=== PATIENT | male | born 1950 | race Caucasian/White ===

== ENCOUNTER 2018-12-30 11:45 | Day surgery (SDC) | payer MEDICARE, BC ==
[2018-12-28 11:17] VITALS: BMI 31.0
[~2018-12-30 11:45] MED LIST: LACTATED RINGERS 1,000 ML IV SCH; LIDOCAINE 1% 20 ML VIAL (10MG/ML) FOR IV START INTRADERMA PRN
[2018-12-30 12:23] VITALS: TEMP 98.3
[2018-12-30] MEDS ORDERED: PROPOFOL 10 MG/ML 20 ML VIAL IV ONE (12:35)
[2018-12-30] MEDS ORDERED: IV FLUID CONTINUATION 625 ML IV ONE (13:06)
--- NOTE | 2018-12-30 13:22 | P.PCN ---
Date of Procedure: 12/30/18 Procedure(s) Performed: BRIEF HISTORY: Patient is a 68-year-old pleasant white male, scheduled for an elective colonoscopy as a part of evaluation of prior history of colon polyps.. His last colonoscopy was 5 years ago. PROCEDURE PERFORMED: Colonoscopy with biopsy. PREOPERATIVE DIAGNOSIS: History of colon polyps. IV sedation per Anesthesia. PROCEDURE: After informed consent was obtained, the patient, was brought into the endoscopy unit. IV sedation was administered by Anesthesia under continuous monitoring. Digital rectal examination was normal. Initially the Olympus CF- 160 flexible video colonoscope was then inserted in the rectum, gradually advanced into the cecum without any difficulty. Careful examination was performed as the scope was gradually being withdrawn. Ileocecal valve and the appendiceal orifice were visualized and appeared normal. Prep was excellent. Mucosa of the cecum, ascending colon, transverse colon, P normal. The descending colon there was a 5 mm polyp that was removed by cold biopsy. There are scattered sigmoid diverticulosis seen. Rest of the descending colon, sigmoid colon, and rectum appeared normal. Retroflexion was performed in the rectum and no lesions were seen. The patient tolerated the procedure well. IMPRESSION: 5 mm descending colon polyp status by cold biopsy Scattered sigmoid diverticulosis RECOMMENDATIONS: Findings of this examination were discussed with the patient as well as his family. He was advised to follow with the biopsy results and he can have a repeat surveillance colonoscopy in 5 years.
[2018-12-30 13:26] VITALS: RESP 18
[2018-12-30 13:49] VITALS: BP 140/70; PULSE 66
== END 2018-12-30 14:14 | disposition home or self-care (01) ==
LOC: ORWHC2ENDO 11:45
PROVIDERS: ATTEND Internal Medicine Gastroenterology
DX: Z12.11 Encounter for screening for malignant neoplasm of colon (principal); Z86.010 Personal history of colon polyps; D12.4 Benign neoplasm of descending colon; K57.30 Diverticulosis of large intestine without perforation or abscess without bleeding; K21.9 Gastro-esophageal reflux disease without esophagitis; Z87.891 Personal history of nicotine dependence; Z85.46 Personal history of malignant neoplasm of prostate; Z79.899 Other long term (current) drug therapy
CPT/HCPCS: 88305; 45380; J2704

== ENCOUNTER → 2019-07-11 | Outpatient (CLI) | payer MEDICARE, BC ==
[2019-07-11 15:24] LABS: Basophils # (A) 0.1 k/uL (0-0.2); Basophils % (A) 1 %; Eosinophils # (A) 0.1 k/uL (0-0.7); Eosinophils % (A) 1 %; HCT 49.9 % (39.0-53.0); HGB 16.7 gm/dL (13.0-17.5); Lymphocytes # (A) 2.1 k/uL (1.0-4.8); Lymphocytes % (A) 27 %; MCH 32.7 pg (25.0-35.0); MCHC 33.5 g/dL (31.0-37.0); MCV 97.5 fL (80.0-100.0); Mean Platelet Volume 7.9; Monocytes # (A) 0.6 k/uL (0-1.0); Monocytes % (A) 8 %; Neutrophils # (A) 4.8 k/uL (1.3-7.7); Neutrophils % (A) 61 %; Platelet Count 187 k/uL (150-450); RBC 5.12 m/uL (4.30-5.90); RDW 13.5 % (11.5-15.5); WBC 7.8 k/uL (3.8-10.6)
[2019-07-12 01:24] LABS: African American GFR (CKD) 89.2 (60.0-200.0); Albumin 4.5 g/dL (3.80-4.90); Albumin/Globulin Ratio 2.37 (1.60-3.17); Anion Gap 13.3 mmol/L (4.00-12.00); Calcium 9.2 mg/dL (8.7-10.3); Carbon Dioxide 23.7 mmol/L (21.6-31.8); Chol/HDL Ratio 3.1; Globulin 1.9 g/dL (1.6-3.3); LDL Cholesterol,Calculated 130.2 mg/dL (0.0-131.0); Potassium 4.5 mmol/L (3.5-5.5); Total Bilirubin 0.6 mg/dL (0.2-1.2); Total Protein 6.4 g/dL (6.2-8.2); VLDL Calculation 18.8 mg/dL (5.00-40.00)
[2019-07-12 01:42] LABS: T4, Free (Free Thyroxine) 0.9 ng/dL (0.80-1.80)
== END | disposition home or self-care (01) ==
LOC: LABWHC1 13:28
PROVIDERS: ATTEND Internal Medicine
DX: Z00.00 Encounter for general adult medical examination without abnormal findings (principal); C61 Malignant neoplasm of prostate
CPT/HCPCS: 36415; 80053; 80061; 84153; 84439; 84443; 85025

== ENCOUNTER → 2020-07-23 | Outpatient (CLI) | payer MEDICARE, BC ==
[2020-07-23 14:53] LABS: Basophils % (A) 1 %; Eosinophils # (A) 0.3 k/uL (0-0.7); Eosinophils % (A) 3 %; HCT 50.6 % (39.0-53.0); HGB 16.5 gm/dL (13.0-17.5); Lymphocytes # (A) 2.5 k/uL (1.0-4.8); Lymphocytes % (A) 28 %; MCH 31.8 pg (25.0-35.0); MCHC 32.5 g/dL (31.0-37.0); MCV 97.8 fL (80.0-100.0); Mean Platelet Volume 7.9; Monocytes # (A) 0.6 k/uL (0-1.0); Monocytes % (A) 6 %; Neutrophils # (A) 5.4 k/uL (1.3-7.7); Neutrophils % (A) 61 %; Platelet Count 195 k/uL (150-450); RBC 5.18 m/uL (4.30-5.90); RDW 12.9 % (11.5-15.5); WBC 8.9 k/uL (3.8-10.6)
[2020-07-23 20:01] LABS: ALT 24 U/L (10-49); AST 20 U/L (14-35); African American GFR (CKD) 100.6 (60.0-200.0); Albumin/Globulin Ratio 2.05 (1.60-3.17); Alkaline Phosphatase 50 U/L (41-126); Calcium 8.9 mg/dL (8.7-10.3); Chloride 107 mmol/L (96-109); Globulin 2.1 g/dL (1.6-3.3); Glucose 102 mg/dL (70-110); Non-African American GFR(CKD) 86.8 (60.0-200.0); Potassium 4.3 mmol/L (3.5-5.5); Sodium 137 mmol/L (135-145); Total Bilirubin 0.9 mg/dL (0.3-1.2); Total Protein 6.4 g/dL (6.2-8.2)
[2020-07-23 20:02] LABS: Cholesterol 194 mg/dL (0-200); LDL Cholesterol,Calculated 111.4 mg/dL (0.0-131.0)
[2020-07-23 20:20] LABS: Prostate Specific Antigen <0.1 ng/mL (0.0-4.5)
== END | disposition home or self-care (01) ==
LOC: LABWHC1 14:18
PROVIDERS: ATTEND Internal Medicine
DX: Z00.00 Encounter for general adult medical examination without abnormal findings (principal); R05 Cough; R53.83 Other fatigue; I10 Essential (primary) hypertension; E78.5 Hyperlipidemia, unspecified; C61 Malignant neoplasm of prostate
CPT/HCPCS: 36415; 80053; 80061; 84153; 85025

== ENCOUNTER → 2021-07-29 | Outpatient (CLI) | payer MEDICARE, BC ==
[2021-07-29 18:23] LABS: Basophils # (A) 0.03 X 10*3/uL (0.00-0.10); Basophils % (A) 0.4 %; Eosinophils # (A) 0.11 X 10*3/uL (0.04-0.35); Eosinophils % (A) 1.4 %; HCT 47.8 % (39.6-50.0); HGB 16.2 g/dL (13.0-17.0); Lymphocytes # (A) 2.27 X 10*3/uL (0.90-5.00); Lymphocytes % (A) 29.3 %; MCH 32.8 pg (27.0-32.0); MCHC 33.9 g/dL (32.0-37.0); MCV 96.8 fL (80.0-97.0); Mean Platelet Volume 11.1 fL (9.5-12.2); Monocytes # (A) 0.72 X 10*3/uL (0.20-1.00); Monocytes % (A) 9.3 %; Neutrophils # (A) 4.61 X 10*3/uL (1.80-7.70); Neutrophils % (A) 59.5 %; Platelet Count 191 X 10*3/uL (140-440); RBC 4.94 X 10*6/uL (4.40-5.60); RDW 12.2 % (11.5-14.5); WBC 7.75 X 10*3/uL (4.50-10.00)
[2021-07-29 22:03] LABS: ALT 21 U/L (10-49); AST 21 U/L (14-35); Albumin/Globulin Ratio 2.05 (1.60-3.17); Alkaline Phosphatase 53 U/L (41-126); Calcium 9.1 mg/dL (8.7-10.3); Carbon Dioxide 23.2 mmol/L (21.6-31.8); Chloride 106 mmol/L (96-109); Chol/HDL Ratio 2.77; Cholesterol 177 mg/dL (0-200); Globulin 2.2 g/dL (1.6-3.3); Glucose 98 mg/dL (70-110); LDL Cholesterol,Calculated 93.2 mg/dL (0.0-131.0); Non-African American GFR(CKD) 75.9 (60.0-200.0); Potassium 4.3 mmol/L (3.5-5.5); Sodium 140 mmol/L (135-145); Total Bilirubin 0.7 mg/dL (0.3-1.2); Total Protein 6.7 g/dL (6.2-8.2)
[2021-07-29 22:07] LABS: Prostate Specific Antigen <0.1 ng/mL (0.0-6.5)
== END | disposition home or self-care (01) ==
LOC: LABWHC1 14:37
PROVIDERS: ATTEND Internal Medicine
DX: Z00.00 Encounter for general adult medical examination without abnormal findings (principal); C61 Malignant neoplasm of prostate; I10 Essential (primary) hypertension; E78.5 Hyperlipidemia, unspecified
CPT/HCPCS: 36415; 80053; 80061; 84153; 84439; 84443; 85025

== ENCOUNTER → 2022-01-22 | Outpatient (CLI) | payer MEDICARE, BC ==
[2022-01-22 18:22] LABS: African American GFR (CKD) 91.2 (60.0-200.0); Anion Gap 13.4 mmol/L (10.00-18.00); BUN/Creat Ratio 14.3 Ratio (12.00-20.00); Blood Urea Nitrogen 13.8 mg/dL (9.0-27.0); Calcium 9.1 mg/dL (8.7-10.3); Carbon Dioxide 21.7 mmol/L (20.0-27.5); Magnesium 2.1 mg/dL (1.5-2.4); Non-African American GFR(CKD) 78.7 (60.0-200.0); Potassium 4.4 mmol/L (3.5-5.5)
== END | disposition home or self-care (01) ==
LOC: LABWHC1 12:39
PROVIDERS: ATTEND Nurse Practitioner Adult Health
DX: I10 Essential (primary) hypertension (principal)
CPT/HCPCS: 36415; 80048; 83735

== ENCOUNTER → 2022-07-28 | Outpatient (CLI) | payer MEDICARE, BC ==
[2022-07-28 18:37] LABS: Basophils # (A) 0.04 X 10*3/uL (0.00-0.10); Basophils % (A) 0.5 %; Eosinophils # (A) 0.06 X 10*3/uL (0.04-0.35); Eosinophils % (A) 0.7 %; HCT 47.8 % (39.6-50.0); Immature Grans, Automated 0.3 %; Lymphocytes # (A) 3.28 X 10*3/uL (0.90-5.00); Lymphocytes % (A) 37.9 %; MCHC 33.5 g/dL (32.0-37.0); MCV 95.6 fL (80.0-97.0); Monocytes # (A) 0.69 X 10*3/uL (0.20-1.00); NRBC Per 100 WBC 0 /100 WBCS (0.0-0.0); Neutrophils # (A) 4.55 X 10*3/uL (1.80-7.70); Neutrophils % (A) 52.6 %; Platelet Count 209 X 10*3/uL (140-440); RDW 12.2 % (11.5-14.5); WBC 8.65 X 10*3/uL (4.50-10.00)
[2022-07-28 19:10] LABS: ALT 41 U/L (10-49); AST 27 U/L (14-35); African American GFR (CKD) 92.8 (60.0-200.0); Albumin 4.6 g/dL (3.8-4.9); Albumin/Globulin Ratio 2.16 (1.60-3.17); Alkaline Phosphatase 52 U/L (41-126); BUN/Creat Ratio 16.19 Ratio (12.00-20.00); Blood Urea Nitrogen 15.4 mg/dL (9.0-27.0); Calcium 9.3 mg/dL (8.7-10.3); Carbon Dioxide 25.4 mmol/L (20.0-27.5); Chloride 105 mmol/L (96-109); Chol/HDL Ratio 2.37 Ratio; Globulin 2.1 g/dL (1.6-3.3); Glucose 99 mg/dL (70-110); LDL Cholesterol,Calculated 59.1 mg/dL (0.0-131.0); Non-African American GFR(CKD) 80.1 (60.0-200.0); Potassium 4.7 mmol/L (3.5-5.5); Sodium 141 mmol/L (135-145); Total Protein 6.7 g/dL (6.2-8.2); VLDL Calculation 19.02 mg/dL (5.00-40.00)
[2022-07-28 19:25] LABS: Prostate Specific Antigen <0.01 ng/mL (0.00-6.50)
== END | disposition home or self-care (01) ==
LOC: LABWHC1 13:31
PROVIDERS: ATTEND Internal Medicine
DX: Z12.5 Encounter for screening for malignant neoplasm of prostate (principal); E78.5 Hyperlipidemia, unspecified; I10 Essential (primary) hypertension
CPT/HCPCS: 36415; 80053; 80061; 84153; 84439; 84443; 85025

== ENCOUNTER → 2023-07-20 | Outpatient (CLI) | payer MEDICARE, BC ==
[2023-07-20 21:22] LABS: ALT 36 U/L (10-49); AST 26 U/L (14-35); Albumin 4.5 d/dL (3.8-4.9); Alkaline Phosphatase 53 U/L (41-126); Blood Urea Nitrogen 16.7 mg/dL (9.0-27.0); Calcium 9.2 mg/dL (8.7-10.3); Carbon Dioxide 25.9 mmol/L (21.6-31.8); Chloride 104 mmol/L (96-109); Chol/HDL Ratio 1.92 Ratio; Globulin 1.8 d/dL (1.6-3.3); Glucose 105 mg/dL (70-110); LDL Cholesterol,Calculated 48.7 mg/dL (0.0-131.0); Potassium 4.7 mmol/L (3.5-5.5); Sodium 140 mmol/L (135-145); T4, Free (Free Thyroxine) 0.86 ng/dL (0.80-1.80); Total Bilirubin 0.6 mg/dL (0.3-1.2); Total Protein 6.3 d/dL (6.2-8.2); VLDL Calculation 16.54 mg/dL (5.00-40.00)
[2023-07-20 21:28] LABS: Basophils # (A) 0.04 X 10*3/uL (0.00-0.10); Basophils % (A) 0.4 %; Eosinophils % (A) 0.9 %; HGB 15.6 d/dL (13.0-17.0); Lymphocytes % (A) 30.6 %; MCHC 33.9 d/dL (32.0-37.0); MCV 97.3 FL (80.0-97.0); Mean Platelet Volume 10.7 FL (9.5-12.2); Monocytes # (A) 0.84 X 10*3/uL (0.20-1.00); Monocytes % (A) 7.8 %; NRBC Per 100 WBC 0 X 10*3/uL (0.00-0.01); Neutrophils # (A) 6.48 X 10*3/uL (1.80-7.70); Neutrophils % (A) 60.1 %; Platelet Count 189 X 10*3/uL (140-440); RBC 4.73 X 10*6/uL (4.40-5.60); RDW 13.2 % (11.5-14.5); WBC 10.78 X 10*3/uL (4.50-10.00)
[2023-07-20 21:41] LABS: PSA Annual Screen <0.014 ng/mL (0.000-4.000)
== END | disposition home or self-care (01) ==
LOC: LABWHC1 13:19
PROVIDERS: ATTEND Internal Medicine
DX: Z00.00 Encounter for general adult medical examination without abnormal findings (principal); Z12.5 Encounter for screening for malignant neoplasm of prostate; E78.5 Hyperlipidemia, unspecified
CPT/HCPCS: 84439; 80061; 80053; 84443; 85025; 36415; G0103

== ENCOUNTER 2024-06-30 11:15 | Day surgery (SDC) | payer MEDICARE, BC ==
[~2024-06-30 11:15] MED LIST changes: +LACTATED RINGERS 1,000 ML BAG ONE; -LACTATED RINGERS 1,000 ML IV SCH; -LIDOCAINE 1% 20 ML VIAL (10MG/ML) FOR IV START INTRADERMA PRN
[2024-06-30] MEDS ORDERED: PROPOFOL 10 MG/ML 20 ML VIAL IV ONE (11:25)
--- NOTE | 2024-06-30 15:58 | PCN ---
PROCEDURE NOTE REQUESTING PHYSICIAN: Dr. Barnes. BRIEF HISTORY: The patient is a 73-year-old pleasant white male scheduled for a colonoscopy as a part of evaluation for prior history of colon polyps. PROCEDURE PERFORMED: Colonoscopy. PREOPERATIVE DIAGNOSIS: History of colon polyps. ANESTHESIA: IV sedation per Anesthesia. DESCRIPTION OF PROCEDURE: After informed consent was obtained from the patient, he was brought into the endoscopy unit. IV conscious sedation was administered by Anesthesia under continuous monitoring. Initial digital rectal examination was normal. The Olympus CF-190 video colonoscope was then inserted into the rectum, gradually advanced to the cecum. Careful examination was performed. The scope was gradually being withdrawn. The ileocecal valve and appendiceal orifice were visualized and appeared normal. The prep was excellent. Mucosa of the cecum, ascending colon, transverse colon, descending colon, sigmoid colon, and rectum appeared normal. There were scattered sigmoid diverticulosis seen. In the rectum, retroflexion was performed. No lesions were noted. The patient tolerated the procedure well. IMPRESSION: 1. Scattered sigmoid diverticulosis. 2. No evidence of colorectal neoplasia. RECOMMENDATIONS: Findings of this examination were discussed with the patient as well as his family. He was advised to have a repeat screening colonoscopy at age 80. MMODL / IJN: [id number] /
== END 2024-06-30 12:16 ==
LOC: ORWHC2ENDO 11:15
PROVIDERS: ATTEND Internal Medicine Gastroenterology
DX: Z12.11 Encounter for screening for malignant neoplasm of colon
CPT/HCPCS: 45378

== ENCOUNTER → 2024-07-18 | Outpatient (CLI) | payer MEDICARE, BC ==
[2024-07-18 18:02] LABS: Basophils # (A) 0.05 X 10*3/uL (0.00-0.10); Basophils % (A) 0.5 %; Eosinophils # (A) 0.15 X 10*3/uL (0.04-0.35); Eosinophils % (A) 1.6 %; HCT 46.2 % (39.6-50.0); HGB 15.5 g/dL (13.0-17.0); Lymphocytes # (A) 3.43 X 10*3/uL (0.90-5.00); Lymphocytes % (A) 35.9 %; MCH 32.2 pg (27.0-32.0); MCHC 33.5 g/dL (32.0-37.0); Mean Platelet Volume 11.3 FL (9.5-12.2); Monocytes # (A) 0.87 X 10*3/uL (0.20-1.00); Monocytes % (A) 9.1 %; NRBC Per 100 WBC 0 X 10*3/uL (0.00-0.01); Neutrophils # (A) 5.03 X 10*3/uL (1.80-7.70); Neutrophils % (A) 52.7 %; Platelet Count 198 X 10*3/uL (140-440); RBC 4.81 X 10*6/uL (4.40-5.60); RDW 12.4 % (11.5-14.5); WBC 9.55 X 10*3/uL (4.50-10.00)
[2024-07-18 18:28] LABS: BUN/Creat Ratio 18.11 Ratio (12.00-20.00); Blood Urea Nitrogen 16.3 mg/dL (9.0-27.0); Calcium 9.4 mg/dL (8.7-10.3); Carbon Dioxide 20.7 mmol/L (21.6-31.8); Chloride 106 mmol/L (96-109); Glucose 103 mg/dL (70-110); Potassium 4.7 mmol/L (3.5-5.5); Sodium 139 mmol/L (135-145)
[2024-07-18 18:35] LABS: Appearance,Urine Turbid (Clear); Bilirubin,Urine Negative (Negative); Blood,Urine Trace (Negative); Color,Urine Yellow (Yellow); Ketones,Urine Trace (Negative); Nitrite,Urine Negative (Negative); PH, Urine 5.5; Specific Gravity,Urine 1.024 (1.001-1.030); Urobilinogen,Urine 0.2 E.U./DL
[2024-07-18 18:45] LABS: Bacteria,Urine None Seen (None Seen)
[2024-07-18 19:06] LABS: Prostate Specific Antigen <0.01 ng/mL (0.000-6.500)
== END | disposition home or self-care (01) ==
LOC: LABWHC1 13:31
PROVIDERS: ATTEND Urology
DX: Z01.818 Encounter for other preprocedural examination
CPT/HCPCS: 36415; 80048; 81001; 84153; 85025; 87086

== ENCOUNTER 2024-07-26 06:56 | Day surgery (SDC) | payer MEDICARE, BC ==
[2024-07-21 12:03] VITALS: BMI 32.5
--- NOTE | 2024-07-25 18:45 | P.GSHP ---
History of Present Illness H&P Date: 07/25/24 73 yo male sp radical prostatectomy in 2001. This left him impotent. He had an inflatable IPP placed in 2006. Recently it quit working. He was seen in the office and the implant has lost fluid consistent with a leak somewhere in the implant. He comes for a replacement of the implant.The alternatives have been discussed. - Constitutional Constitutional: Denies chills, Denies fever - EENT Eyes: denies blurred vision, denies pain Ears, nose, mouth and throat: Denies headache, Denies sore throat - Cardiovascular Cardiovascular: Denies chest pain, Denies shortness of breath - Respiratory Respiratory: Denies cough, Denies 7 - Gastrointestinal Gastrointestinal: Denies abdominal pain, Denies diarrhea, Denies nausea, Denies vomiting - Genitourinary (Female) Genitourinary: Denies dysuria, Denies hematuria - Genitourinary (Male) Genitourinary: Denies dysuria, Denies hematuria - Musculoskeletal Musculoskeletal: Denies myalgias - Integumentary Integumentary: Denies pruritus, Denies rash - Neurological Neurological: Denies numbness, Denies weakness - Psychiatric Psychiatric: Denies anxiety, Denies depression - Endocrine Endocrine: Denies fatigue, Denies weight change Past Medical History Past Medical History: Cancer, GERD/Reflux, Hyperlipidemia, Hypertension Additional Past Medical History / Comment(s): PROSTATE CA, HX POLYPS, lt ear tinnitis, vertigo, RECENT RIB FX AND SHOULDER INJURY History of Any Multi-Drug Resistant Organisms: None Reported Past Surgical History: Prostate Surgery, Tonsillectomy Additional Past Surgical History / Comment(s): penile implant Past Anesthesia/Blood Transfusion Reactions: No Reported Reaction Past Psychological History: Anxiety Smoking Status: Former smoker Past Alcohol Use History: Occasional Additional Past Alcohol Use History / Comment(s): smoker for 45 years 1/2 ppd, quit 2010 Past Drug Use History: None Reported - Past Family History Sister(s) Family Medical History: Cancer, Myocardial Infarction ([place]) Additional Family Medical History / Comment(s): breast cancer. DIALYSIS Medications and Allergies Home Medications Medication Instructions Recorded Confirmed Type ALPRAZolam [Xanax] 0.5 mg PO DAILY 08/20/15 07/21/24 History Ibuprofen [Motrin] 600 mg PO Q12H PRN 08/20/15 07/21/24 History Omeprazole [PriLOSEC] 20 mg PO DAILY 08/20/15 07/21/24 History Atorvastatin [Lipitor] 40 mg PO DAILY 07/21/24 07/21/24 History Furosemide [Lasix] 20 mg PO DAILY PRN 07/21/24 07/21/24 History lisinopriL 30 mg PO DAILY 07/21/24 07/21/24 History Allergies Allergy/AdvReac Type Severity Reaction Status Date / Time No Known Allergies Allergy Verified 07/21/24 11:51 Surgical - Exam - General well developed, well nourished, no distress - Eyes normal ocular movement, no icteric - ENT no hearing loss, no congestion - Neck no masses, trachea midline - Respiratory normal respiratory effort, clear to auscultation - Abdomen Abdomen: soft, non tender, no guarding, no rigid, no rebound - Genitourinary non tender , non inflammed penile implant that won't inflate - Integumentary no rash, no abnormal pigmentation - Neurologic no disoriented, no combative - Psychiatric oriented to time, oriented to person, oriented to place, speech is normal, memory intact Assessment and Plan Assessment: Impression: malfunction penile implant, history of prostate cancer s/p radical prostatectomy Plan: replacement of inflatable penile implant
[2024-07-26] MEDS ORDERED: fentaNYL (PF) 50 MCG/ML 2 ML AMP IV PRN (07:16)
[2024-07-26] MEDS: LACTATED RINGERS 1,000 ML IV SCH (07:55)
[2024-07-26] MEDS: LIDOCAINE 1% (10MG/ML) FOR IV START INTRADERMA STA (07:55)
[2024-07-26] MEDS: IV FLUID CONTINUATION 1,000 ML IV ONE (07:55)
[2024-07-26] MEDS: ONDANSETRON 4 MG/2 ML VIAL IVP ONE (08:02)
[2024-07-26] MEDS: DEXAMETHASONE SOD PHOSPHATE 4 MG/ML 1 ML VIAL IV ONE (08:02)
[2024-07-26] MEDS ORDERED: MIDAZOLAM 2 MG/2 ML VIAL ONE (08:25)
[2024-07-26] MEDS ORDERED: HYDROmorphone (PF) 1 MG/ML ONE (08:25)
[2024-07-26] MEDS ORDERED: PROPOFOL 10 MG/ML 20 ML VIAL IV ONE (08:25)
[2024-07-26] MEDS ORDERED: WATER FOR INJECTION, STERILE 10 ML VIAL IV ONE (08:25)
[2024-07-26] MEDS ORDERED: LIDOCAINE 1% INJ 10MG/ML (20 ML MDV) ONE (08:25)
[2024-07-26] MEDS ORDERED: PHENYLEPHRINE 10 MG/ML VIAL ONE (08:25)
[2024-07-26] MEDS ORDERED: ePHEDrine 50 MG/ML 1 ML VIAL ONE (08:25)
[2024-07-26] MEDS ORDERED: fentaNYL (PF) 50 MCG/ML 2 ML AMP ONE (08:25)
[2024-07-26] MEDS ORDERED: SUCCINYLCHOLINE CHLORIDE 200 MG/10 ML VIAL IV ONE (08:25)
[2024-07-26] MEDS: AMPICILLIN 1,000 MG in SODIUM CHLORIDE 0.9% 50 ML IVPB PRN (08:30)
[2024-07-26] MEDS: GENTAMICIN 80 MG in SODIUM CHLORIDE 0.9% 200 ML IRRIGATION ONE (08:48)
[2024-07-26] MEDS: GENTAMICIN 120 MG in SODIUM CHLORIDE 0.9% 100 ML IVPB PRN (08:53)
[2024-07-26] MEDS: LACTATED RINGERS 1,000 ML IV ONE (09:24)
[2024-07-26] MEDS ORDERED: FUROSEMIDE 20 MG TAB PO PRN (09:50)
[2024-07-26] MEDS ORDERED: MORPHINE SULFATE 2 MG/ML SYRINGE IV PRN (09:51)
--- NOTE | 2024-07-26 09:59 | P.OP ---
Date of Procedure: 07/26/24 Preoperative Diagnosis: Malfunction inflatable penile implant Postoperative Diagnosis: same Procedure(s) Performed: removal and reinsertion of inflatable penile prosthesis, AMS series CX, 18 cm +2 cm rear-tip data migration consultant, 65 mL reservoir Anesthesia: MARKUS Surgeon: Davon Dawn Estimated Blood Loss (ml): 25 Pathology: none sent Condition: stable Disposition: PACU Indications for Procedure: patient is 73. He had an inflatable penile prosthesis placed in 2006 several years after his radical prostatectomy. Recently is malfunction. There is no evidence of infection but it does not inflated. I suspect he has a leak and we'll replace the implant Description of Procedure: patient brought to the operating suite. Given a general anesthetic. Prepped and draped sterilely. Midline infrapubic incision is made. Electrocautery I dissect down to the implant tubing. I followed tubing back to the reservoir tubing to the pump and tubing to each cylinder. I first removed the reservoir a. I then removed the scrotal pump. I then removed the Landers up. I irrigate thoroughly. I measured the length of the implant to be any centimeters bilaterally. I place a 65 mL reservoir in the retroperitoneum and the previously used placed. The neck of the reservoir is closed with [address] then [address] the scrotal pump into the scrotum. I then using the Juan needle and Francois introducer passed the cylinders corpora, 18 cm with 2 cm rear tip extenders. They both inflate nicely without buckling. I closed the corporotomies with 2-0 PDS. Closed the neck of the situation to the scrotal pump with a 3-0 chromic. I then connected the cylinders to the reservoir with straight connects. I then inflate and deflate the implant without difficulty. The wound is irrigated thoroughly. I closed the incision with 3-0 chromic and then 4-0 Vicryl subcu reticular. Blood loss is 25 mL. He tolerated the procedure well. He'll be placed in the hospital overnight as he lives alone and is known to Help him postanesthetic.
[2024-07-26] MEDS: DEXTROSE 5%-0.45% NACL 1,000 ML IV SCH (16:09)
[2024-07-26] MEDS: HYDROmorphone 0.5 MG/0.5 ML SYRINGE IVP PRN (18:20)
[2024-07-26] MEDS: HYDROcodone/APAP 5-325MG 1 EACH TAB PO PRN (23:25)
[2024-07-27] MEDS: IBUPROFEN 600 MG TAB PO PRN (00:53)
[2024-07-27 03:36] VITALS: RESP 17
[2024-07-27] MEDS: PANTOPRAZOLE 40 MG TABLET PO SCH (06:40)
--- NOTE | 2024-07-27 07:44 | P.DS ---
Providers Attending physician: Davon Dawn Primary care physician: [facility] Course: patient was admitted 04/25/24 for removal and replacement of a malfunctioning penile implant. He did well intraoperatively. Postoperatively his kept in the hospital. Vital signs are stable. He is afebrile. His abdomen is soft. Wound looks good. His voided without difficulty. He'll be discharged home today. He'll follow-up in the office in one week. Postoperative instructions been giv en. He's been given a prescription of [place]. Good. Patient Condition at Discharge: Good Plan - Discharge Summary Discharge Rx Participant: No New Discharge Prescriptions: New HYDROcodone/APAP 5-325MG [[place] 5-325] 1 tab PO Q4HR PRN #14 tab PRN Reason: Pain No Action Omeprazole [PriLOSEC] 20 mg PO DAILY Ibuprofen [Motrin] 600 mg PO Q12H PRN PRN Reason: Pain ALPRAZolam [Xanax] 0.5 mg PO DAILY Furosemide [Lasix] 20 mg PO DAILY PRN PRN Reason: LE EDEMA Atorvastatin [Lipitor] 40 mg PO DAILY lisinopriL 30 mg PO DAILY Discharge Medication List ALPRAZolam [Xanax] 0.5 mg PO DAILY 08/20/15 [History] Ibuprofen [Motrin] 600 mg PO Q12H PRN 08/20/15 [History] Omeprazole [PriLOSEC] 20 mg PO DAILY 08/20/15 [History] Atorvastatin [Lipitor] 40 mg PO DAILY 07/21/24 [History] Furosemide [Lasix] 20 mg PO DAILY PRN 07/21/24 [History] lisinopriL 30 mg PO DAILY 07/21/24 [History] HYDROcodone/APAP 5-325MG [[place] 5-325] 1 tab PO Q4HR PRN #14 tab 07/27/24 [Rx] Follow up Appointment(s)/Referral(s): Davon Dawn MD [STAFF PHYSICIAN] - 1 Week Discharge Disposition: HOME SELF-CARE
[2024-07-27] MEDS: ALPRAZolam 0.5 MG TAB PO SCH (08:06)
[2024-07-27] MEDS: ATORVASTATIN 40 MG TAB PO SCH (08:06)
[2024-07-27] MEDS: lisinopriL 10 MG TAB PO SCH (08:06)
[2024-07-27 09:03] VITALS: BP 106/66; PULSE 65; TEMP 97.8
== END 2024-07-27 11:20 | disposition home or self-care (01) ==
LOC: OR 06:56 → 4SSUR 09:50 → OR 07-27 11:20
PROVIDERS: ATTEND Urology
DX: T83.118A Breakdown (mechanical) of other urinary devices and implants, initial encounter

== ENCOUNTER 2024-08-09 10:06 | Day surgery (SDC) | payer MEDICARE, BC ==
[2024-08-03 14:53] VITALS: BMI 32.9
--- NOTE | 2024-08-08 10:59 | P.GSHP ---
History of Present Illness H&P Date: 08/08/24 73 yo male who underwent removal with replacement of a malfunctioning IPP on 07/26/24. the systenm was placed in the old pockets. The reservoir however surfaced above the rectus muscle on the right and comes for repositioning of the reservoir. - Constitutional Constitutional: Denies chills, Denies fever - EENT Eyes: denies blurred vision, denies pain Ears, nose, mouth and throat: Denies headache, Denies sore throat - Cardiovascular Cardiovascular: Denies chest pain, Denies shortness of breath - Respiratory Respiratory: Denies cough, Denies 7 - Gastrointestinal Gastrointestinal: Denies abdominal pain, Denies diarrhea, Denies nausea, Denies vomiting - Genitourinary (Female) Genitourinary: Denies dysuria, Denies hematuria - Genitourinary (Male) Genitourinary: Denies dysuria, Denies hematuria - Musculoskeletal Musculoskeletal: Denies myalgias - Integumentary Integumentary: Denies pruritus, Denies rash - Neurological Neurological: Denies numbness, Denies weakness - Psychiatric Psychiatric: Denies anxiety, Denies depression - Endocrine Endocrine: Denies fatigue, Denies weight change Past Medical History Past Medical History: Cancer, GERD/Reflux, Hearing Disorder / Deafness Additional Past Medical History / Comment(s): Recent right shoulder injury and rib fracture, "getting better." HX PROSTATE CANCER. HX POLYPS. Left ear tinn itis, vertigo, left hearing aid use. History of Any Multi-Drug Resistant Organisms: None Reported Past Surgical History: Prostate Surgery, Tonsillectomy Additional Past Surgical History / Comment(s): Penile implant, colonoscopy. Past Anesthesia/Blood Transfusion Reactions: No Reported Reaction Smoking Status: Former smoker Medications and Allergies Home Medications Medication Instructions Recorded Confirmed Type ALPRAZolam [Xanax] 0.5 mg PO DAILY 08/20/15 08/03/24 History Ibuprofen [Motrin] 600 mg PO Q12H PRN 08/20/15 08/03/24 History Omeprazole [PriLOSEC] 20 mg PO DAILY 08/20/15 08/03/24 History Atorvastatin [Lipitor] 40 mg PO DAILY 07/21/24 08/03/24 History Furosemide [Lasix] 20 mg PO DAILY PRN 07/21/24 08/03/24 History lisinopriL 30 mg PO DAILY 07/21/24 08/03/24 History HYDROcodone/APAP 5-325MG [[place] 1 tab PO Q4HR PRN #14 tab 07/27/24 08/03/24 Rx 5-325] Allergies Allergy/AdvReac Type Severity Reaction Status Date / Time No Known Allergies Allergy Verified 08/03/24 14:41 Surgical - Exam - General well developed, well nourished, no distress - Eyes normal ocular movement, no icteric - ENT no hearing loss, no congestion - Neck no masses, trachea midline - Respiratory normal respiratory effort, clear to auscultation - Abdomen Abdomen: soft, non tender, no guarding, no rigid, no rebound - Genitourinary IPP, reservoir on the right with the implant above the rectus muscle - Integumentary no rash, no abnormal pigmentation - Neurologic no disoriented, no combative - Psychiatric oriented to time, oriented to person, oriented to place, speech is normal, memory intact Assessment and Plan Assessment: Impression: malposition of IPP Plan: reposition of reservoir.
[2024-08-09] MEDS: LACTATED RINGERS 1,000 ML IV SCH (10:53)
[2024-08-09] MEDS: DEXAMETHASONE SOD PHOSPHATE 4 MG/ML 1 ML VIAL IV ONE (10:54)
[2024-08-09] MEDS: ONDANSETRON 4 MG/2 ML VIAL IVP ONE (10:54)
[2024-08-09] MEDS: IV FLUID CONTINUATION 1,000 ML IV ONE (10:57)
[2024-08-09] MEDS ORDERED: LIDOCAINE 1% INJ 10MG/ML (20 ML MDV) ONE (11:36)
[2024-08-09] MEDS ORDERED: PROPOFOL 10 MG/ML 20 ML VIAL IV ONE (11:36)
[2024-08-09] MEDS ORDERED: MIDAZOLAM 2 MG/2 ML VIAL ONE (11:36)
[2024-08-09] MEDS ORDERED: SUCCINYLCHOLINE CHLORIDE 200 MG/10 ML VIAL IV ONE (11:36)
[2024-08-09] MEDS ORDERED: fentaNYL (PF) 50 MCG/ML 2 ML AMP ONE (11:36)
[2024-08-09] MEDS ORDERED: PHENYLEPHRINE-0.9% NACL SYG 1,000 MCG/10 ML SYRINGE ONE (11:36)
[2024-08-09] MEDS ORDERED: ePHEDrine 50 MG/ML 1 ML VIAL ONE (11:36)
[2024-08-09] MEDS: GENTAMICIN 120 MG in SODIUM CHLORIDE 0.9% 100 ML IVPB PRN (11:41)
[2024-08-09] MEDS: AMPICILLIN 1,000 MG in SODIUM CHLORIDE 0.9% 50 ML IVPB PRN (11:41)
[2024-08-09] MEDS: GENTAMICIN 80 MG in SODIUM CHLORIDE 0.9% 200 ML IRRIGATION ONE (12:12)
[2024-08-09] MEDS: LACTATED RINGERS 1,000 ML IV ONE (12:28)
--- NOTE | 2024-08-09 12:46 | P.OP ---
Date of Procedure: 08/09/24 Preoperative Diagnosis: status post placement of inflatable penile prosthesis, malposition reservoir Postoperative Diagnosis: same Procedure(s) Performed: penile implant exploration with revised position of reservoir Anesthesia: MARKUS Surgeon: Davon Dawn Estimated Blood Loss (ml): 0 Pathology: none sent Condition: stable Disposition: PACU Indications for Procedure: the patient 3 weeks ago underwent revision of a penile implant initially placing 2006. Postoperatively he was noted to have a bulge in his right inguinal region. Became evident and the second postoperative visit that this is the reservoir and was not a hematoma. He comes for repositioning of the reservoir. Description of Procedure: patient brought to the operative suite. Given a general anesthetic. He is prepped and draped sterilely. A make an incision through the old infrapubic incision. Electrocautery open the subcutaneous tissue. Old blood is drained. I exposed the implant tubing. I identified the tubing to the reservoir. I followed back to the reservoir an open up the tissue. It appears to be behind the rectus but obviously it is not based on its palpation. I then use rubber shods the clamp the tubing. I then drained the fluid out of the reservoir remove the reservoir from its pouch. I then make an incision in the midline and go behind the rectus on the left side. I created a pocket for the reservoir. The reservoir is placed in the pouch. It is filled back up to 65 mL of sterile saline. A close the defect in the rectus fascia with 0 Vicryl. I then irrigated extensively and thoroughly. I reconnected the tubing from the pump to the reservoir with straight connects. I irrigated again thoroughly. I then closed the subcutaneous tissue with 2-0 chromic and the skin with 4-0 Vicryl. A in which will be left in for 24 hours has been placed. The patient is awake and returned recovery in good condition. He'll be discharged home upon recovery and found the office tomorrow for drain removal.
[2024-08-09 12:57] VITALS: TEMP 97
[2024-08-09] MEDS: HYDROmorphone 0.5 MG/0.5 ML SYRINGE IVP PRN (13:09)
[2024-08-09 14:02] VITALS: RESP 16
[2024-08-09] MEDS: HYDROcodone/APAP 5-325MG 1 EACH TAB PO STA (14:08)
[2024-08-09 14:37] VITALS: BP 115/59; PULSE 80
== END 2024-08-09 15:00 | disposition home or self-care (01) ==
LOC: OR 10:06
PROVIDERS: ATTEND Urology